=== PATIENT | male | born 1980 | race Caucasian/White ===

== ENCOUNTER 2020-10-31 12:55 | Emergency (ER) | payer SELFPAY ==
--- NOTE | ~2020-10-31 | XR_ITS ---
EXAMINATION: [id number] EXAM DATE: 10/31/2020 13:44 INDICATION: Right posterior rib pain. TECHNIQUE: Frontal projection of the upper right ribs, frontal projection of the lower right ribs, ob lique projection of the right ribs, frontal chest x-ray(s) for interpretation. There is no prior lowell dy for comparison. FINDINGS: There are no displaced acute right rib fractures identified. There is no soft tissue abno rmality seen. There are no osteoblastic or osteolytic lesions identified. No confluent consolidation , pneumothorax or pleural effusion suspected. Cardiomediastinal silhouette is normal. IMPRESSION: Unremarkable right rib exam, chest x-ray. Reviewed, dictated and finalized at location B.
[2020-10-31 13:15] VITALS: BP 108/76; PULSE 84; RESP 20; TEMP 36.8; O2SAT 99
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
== END 2020-10-31 14:00 | disposition home or self-care (01) ==
PROVIDERS: Emergency Provider Nurse Practitioner Family
DX: R07.81 Pleurodynia (principal); I45.6 Pre-excitation syndrome
CPT/HCPCS: 71101; 99203; G0463